=== PATIENT | female | born 1995 | race Caucasian/White ===

== ENCOUNTER 2023-07-07 14:32 | Emergency (ER) | payer MEDICAID ==
[~2023-07-07] VITALS: Ht 170.2 cm; Wt 60.9 kg
[2023-07-07 15:23] LABS: BILIRUBIN,URINE NEGATIVE (Neg); CLARITY,URINE SLIGHTLY CLOUDY (Clear); COLOR,URINE STRAW (Yellow); GLUCOSE, URINE NEGATIVE (Neg); KETONES,URINE NEGATIVE (Neg); LEUKOCYTE ESTERASE ,URINE NEGATIVE (Neg); NITRITES, URINE NEGATIVE (Neg); OCCULT BLOOD,URINE NEGATIVE (Neg); PH,URINE 7.5 (4.8-8.0); PROTEIN,URINE NEGATIVE (Neg); URINE HCG NEGATIVE (NEG); UROBILINOGEN,URINE 0.2 E.U/dL (0.2-1.0)
[2023-07-07 15:24] LABS: UA COLLECTION TYPE CLN CATCH MIDSTREAM
[2023-07-07 15:32] LABS: AMORPHOUS URATES 1+; BACTERIA,URINE FEW /HPF (Neg); MUCUS STRANDS NONE SEEN /LPF (Neg); RBC,URINE NONE SEEN /HPF (0-2); SQUAMOUS EPITHELIAL CELL,UR FEW /LPF (FEW); WBC,URINE 0-4 /HPF (0-4)
[2023-07-07] MEDS ORDERED: DOXY-457 PO (15:54)
[2023-07-07] MEDS: DOXYCYCLINE 100MG CAPSULE PO STA (15:56)
[2023-07-07] MEDS: CefTRIAXone 500MG IM Kit w/LIDOcaine IM ONE (15:56)
[2023-07-07 16:03] VITALS: BP 126/103; PULSE 87; RESP 16; TEMP 98; O2SAT 100
== END 2023-07-07 16:06 | disposition home or self-care (01) ==
LOC: ER 14:33
DX: A56.02 Chlamydial vulvovaginitis (principal); Z88.8 Allergy status to other drugs, medicaments and biological substances
CPT/HCPCS: 36415; 81001; 81025; 87491; 87591; 96372; 99283; J0696